=== PATIENT | female | born 1985 | race Caucasian/White ===

== ENCOUNTER 2016-07-18 08:41 | Emergency (ER) | payer OTHER ==
[~2016-07-18 08:41] MED LIST: ACETAMINOPHEN PO; ACULAR10 ML OP; ADDERALL; BACTRIM DS TABL1 TA1; DOXYCYCLINE HY100 M1; ERYTHROMYCIN250 M1 PO; IBUPROFEN800 MG PO; LEXAPRO; LORTAB 10-5001 EACH PO; NAPROXEN; PHENERGAN25 M1 PO; PHENERGAN25 MG PO; TYLENOL #3 PO; VICODIN 5/1 TAB 5/50 PO; VOLTAREN75 MG PO
== END 2016-07-18 09:46 | disposition home or self-care (01) ==
LOC: SED 08:41
DX: S01.512A Laceration without foreign body of oral cavity, initial encounter (principal); S16.1XXA Strain of muscle, fascia and tendon at neck level, initial encounter; F17.200 Nicotine dependence, unspecified, uncomplicated; Z88.0 Allergy status to penicillin; Y08.89XA Assault by other specified means, initial encounter; Y92.009 Unspecified place in unspecified non-institutional (private) residence as the place of occurrence of the external cause
CPT/HCPCS: 99283